=== PATIENT | male | born 1950 | race Caucasian/White ===

== ENCOUNTER → 2023-05-04 06:40 | Day surgery (SDC) | payer BC, SELFPAY ==
--- NOTE | 2023-05-04 08:29 | ITS.CL.CARDI ---
Cloth Edge Singer - Cardioversion
Cardioversion
Procedure Report:
Date of Procedure: 05/04/23
Procedure: Cardioversion
Indication: Symptomatic atrial fibrillation
Performing Physician: Ann-Marie Mcdonald DO [facility]
Technique: The patient was brought to the holding area. Signed informed consent was obtained. A time out was called and performed. The patient was anesthetized by the anesthesia service. Anticoagulation status was reviewed and appropriate
(Eliquis). R2 pads were placed anteriorly and posteriorly. A 200 J synchronized biphasic shock restored normal sinus bradycardia with PACs. There were no complications.
Conclusion: Uncomplicated cardioversion from atrial fibrillation to sinus bradycardia.
Recommendation: Routine post cardioversion care. Continue emt intermediate anticoagulation.
== END ==
LOC: CATH 06:40
PROVIDERS: ATTENDING PHYSICIAN Internal Medicine Cardiovascular Disease; FAMILY PHYSICIAN Internal Medicine Geriatric Medicine
DX: I48.19 Other persistent atrial fibrillation (principal); I34.0 Nonrheumatic mitral (valve) insufficiency; I11.0 Hypertensive heart disease with heart failure; I50.20 Unspecified systolic (congestive) heart failure; Z79.01 Long term (current) use of anticoagulants
CPT/HCPCS: 92960; 93005

== ENCOUNTER → 2023-06-22 09:05 | Day surgery (SDC) | payer BC, SELFPAY ==
[2023-06-22 10:08] VITALS: BMI 26.9
--- NOTE | 2023-06-22 15:48 | ITS.CL.CARDI ---
Potato Picker - Cardioversion
Cardioversion
Procedure Report:
CARDIOVERSION REPORT
DATE: June 22, 2023
Primary Care Provider: Dr Gary Wade
INDICATION: Recurrent symptomatic atrial fibrillation
ANTIARRHYTHMIC DRUG THERAPY: Amiodarone
ANTICOAGULATION: Eliquis
ANESTHESIA:
Deep sedation was administered (Propofol) and monitored via the Anesthesia department.
CARDIOVERSION:
Once sedation was determined to be adequate, a biphasic shock was delivered with external pads placed in an A-P position.
Attempt # 1: 100 J Results: AF continued
Attempt # 2: 200 J Results: SR at a HR of 48 bpm.
COMPLICATIONS: None
CONCLUSION: Successful cardioversion of atrial fibrillation to sinus rhythm.
RECOMMENDATION:
Maintain current medical therapy
Begin and maintain a mild to modest aerobic exercise program (he is considering evaluation at [facility]/PT)
Copy to: Dr Gary Wade
== END ==
LOC: CATH 09:05
PROVIDERS: ATTENDING PHYSICIAN Internal Medicine Cardiovascular Disease; FAMILY PHYSICIAN Family Medicine
DX: I48.19 Other persistent atrial fibrillation (principal); I34.0 Nonrheumatic mitral (valve) insufficiency; I11.0 Hypertensive heart disease with heart failure; I50.20 Unspecified systolic (congestive) heart failure; I25.10 Atherosclerotic heart disease of native coronary artery without angina pectoris; Z79.01 Long term (current) use of anticoagulants
CPT/HCPCS: 92960; 93005

== ENCOUNTER 2023-08-17 06:57 | Day surgery (SDC) | payer BC, SELFPAY ==
[2023-08-17 07:59] VITALS: BMI 27.6
== END 2023-08-17 09:39 | disposition home or self-care (01) ==
LOC: CATH 06:57
PROVIDERS: ATTENDING PHYSICIAN Internal Medicine; FAMILY PHYSICIAN Family Medicine
DX: I48.0 Paroxysmal atrial fibrillation (principal); I34.0 Nonrheumatic mitral (valve) insufficiency; I11.0 Hypertensive heart disease with heart failure; I50.22 Chronic systolic (congestive) heart failure; R73.03 Prediabetes; Z79.01 Long term (current) use of anticoagulants
CPT/HCPCS: 92960; 93005

== ENCOUNTER 2023-08-27 07:12 | Day surgery (SDC) | payer BC, SELFPAY ==
--- NOTE | 2023-08-27 10:45 | ITS.CL.CARDI ---
Box Blank Machine Feeder - Cardioversion
Cardioversion
Procedure Report:
CARDIOVERSION REPORT
DATE: August 27, 2023
INDICATION: Atrial fibrillation
ANTIARRHYTHMIC DRUG THERAPY: Amiodarone
ANTICOAGULATION: Apixaban
ANESTHESIA:
Deep sedation was administered (Propofol) and monitored via the Anesthesia department.
CARDIOVERSION:
Once sedation was determined to be adequate, a biphasic shock was delivered with external pads placed in an A-P position.
Attempt # 1: 360 J Results: SR at a HR of 45 bpm.
COMPLICATIONS: None
CONCLUSION: Successful cardioversion of atrial fibrillation to sinus rhythm.
RECOMMENDATION:
Continue amiodarone
We are making plans for ablation in the near future.
== END 2023-08-27 09:02 | disposition home or self-care (01) ==
LOC: CATH 07:12
PROVIDERS: ATTENDING PHYSICIAN Internal Medicine Cardiovascular Disease; FAMILY PHYSICIAN Family Medicine
DX: I48.0 Paroxysmal atrial fibrillation (principal); I11.0 Hypertensive heart disease with heart failure; I50.22 Chronic systolic (congestive) heart failure; I34.0 Nonrheumatic mitral (valve) insufficiency; I25.10 Atherosclerotic heart disease of native coronary artery without angina pectoris; Z79.01 Long term (current) use of anticoagulants
CPT/HCPCS: 92960; 93005

== ENCOUNTER 2023-09-21 06:53 | Day surgery (SDC) | payer BC, SELFPAY ==
--- NOTE | 2023-09-21 08:53 | ITS.CL.CARDI ---
Flame Annealing Machine Operator - Cardioversion
Cardioversion
Procedure Report:
CARDIOVERSION REPORT
DATE: September 21, 2023
INDICATION: Atrial fibrillation
ANTIARRHYTHMIC DRUG THERAPY: Amiodarone
ANTICOAGULATION: Apixaban
ANESTHESIA:
Deep sedation was administered (Propofol) and monitored via the Anesthesia department.
CARDIOVERSION:
Once sedation was determined to be adequate, a biphasic shock was delivered with external pads placed in an A-P position.
Attempt # 1: 360 J Results: SR at a HR of 45 bpm.
COMPLICATIONS: None
CONCLUSION: Successful cardioversion of atrial fibrillation to sinus rhythm.
RECOMMENDATION:
Continue amiodarone
PVI is planned for October or November this year
== END 2023-09-21 08:39 | disposition home or self-care (01) ==
LOC: CATH 06:53
PROVIDERS: ATTENDING PHYSICIAN Internal Medicine Cardiovascular Disease; FAMILY PHYSICIAN Family Medicine
DX: I48.0 Paroxysmal atrial fibrillation (principal); I11.0 Hypertensive heart disease with heart failure; I50.22 Chronic systolic (congestive) heart failure; I25.10 Atherosclerotic heart disease of native coronary artery without angina pectoris; I34.0 Nonrheumatic mitral (valve) insufficiency; Z79.01 Long term (current) use of anticoagulants
CPT/HCPCS: 92960; 93005

== ENCOUNTER 2023-11-02 06:26 | Day surgery (SDC) | payer BC, SELFPAY ==
[2023-10-12 09:16] VITALS: BMI 27.8
--- NOTE | 2023-10-12 09:24 | HPS.HSE ---
Family Physician
-
Family Physician: Mj Maldonado
Chief Complaint
-
Paroxysmal atrial fibrillation.
History of Present Illness
The patient is a 72 year old male presenting today for paroxysmal atrial fibrillation. He reports no current symptoms associated with this diagnosis. Unfortunately, he has undergone 2 previous ablations in February 2020 and November 2020 and
22 total cardioversions in the past for this diagnosis. He is on current pharmacological therapy with Amiodarone and Carvedilol. Bradycardia has limited Carvedilol dosing and he is currently taking the highest dose he can tolerate. He has been
compliant with Eliquis for oral anticoagulation. He is interested in pursuing pulmonary vein isolation for further arrhythmia management. He denies any complaints today such as chest pain, shortness of breath, palpitations, nausea, vomiting,
diarrhea, lightheadedness, dizziness, cough, sore throat, or fever.
Medical History
Past Medical History
Past Medical History: Reports Other
Additional Past Medical History:
1. Paroxysmal atrial fibrillation, status post ablation x2 and multiple TARIQ-guided cardioversions; pharmacological therapy with Amiodarone and Carvedilol, oral anticoagulation with Eliquis.
2. Hypertension.
3. Coronary artery disease.
4. Chronic heart failure, mildly reduced ejection fraction.
5. Mild aortic insufficiency.
6. Moderate mitral regurgitation.
7. Mild-moderate tricuspid regurgitation.
8. Chronic kidney disease stage 3.
9. Borderline diabetes, improving with weight loss.
10. Graves disease, status post remote thyroid ablation.
11. Post-surgical hypothyroidism.
12. Recurrent COVID-19 infection without residual side effects.
Past Surgical History: Reports Other
Additional Past Surgical History:
1. Atrial fibrillation ablation x2.
2. Multiple cardioversions.
3. Transesophageal echocardiogram x2.
4. Cardiac catheterization.
5. Laparoscopic right inguinal hernia repair with mesh.
6. Childhood unbilical hernia repair.
7. Thyroid ablation.
8. Thyroidectomy.
Social History
Tobacco: Non-smoker
Alcohol: None
Personal:
Living: Other (He lives with his in a split level home. )
Family History
Family History: Not pertinent
Allergies / Home Medications
Allergy/Medication List:
Home medications:
1. Amiodarone 200 mg p.o. twice a day.
2. Carvedilol 3.125 mg, 1/2 tablet p.o. twice a day.
3. Eliquis 5 mg p.o. twice a day.
4. Levothyroxine 200 mcg p.o. Mondays, Wednesdays, Fridays, and Saturdays.
5. Levothyroxine 100 mcg p.o. on Tuesdays.
6. Lisinopril 20 mg p.o. at bedtime.
7. Multivitamin 1 tablet p.o. daily.
Allergies: No known allergies.
Review of Systems
-
A 12 point ROS was completed and negative except as noted: Yes
Physical Exam
Vital Signs
Blood pressure 137/72. Heart rate 55. Respirations 18. Pulse ox 99% on room air.
Height 6 feet, 0.5 inches. Weight 94.3 kg. BMI 27.8.
Physical Exam
General: Well Developed, Well Nourished and No Apparent Distress
HEENT: NormoCephalic, Moist mucous membranes, Atraumatic and PERRLA
Respiratory: Clear
Cardiac: Irregular Rhythm
GI: Soft, Non Tender and Non Distended
Musculoskeletal: No Edema and Normal Gait & Station
Skin: Warm and Dry
Neuro: AO x 3 and Nonfocal/grossly intact
Laboratory Results
-
DIAGNOSTIC STUDIES as of 10/12/2023: White blood cell count 7.6. Hemoglobin 14.4. Platelet count 175,000. PT 16.3. INR 1.33. Sodium 140. Potassium 5.1. BUN 32. Creatinine 1.5. Glucose 111. Calcium 10.1. Magnesium 2.2. AST 24. ALT 21. Albumin 4.5.
Blood type A positive.
EKG 10/12/2023: Atrial fibrillation with slow ventricular response.
Echocardiogram 04/17/2023: Top normal left ventricular size. Reduced systolic function. No regional wall motion abnormalities are seen. Left ventricular ejection fraction is 40-45% by visual assessment. Stage II diastolic dysfunction suggestive of
abnormal relaxation and increased filling pressures. Mild concentric left ventricular hypertrophy. Severely enlarged left atrium. Mildly enlarged right atrium. Moderate mitral regurgitation with eccentric regurgitant jet. Mild aortic insufficiency.
Mild to moderate tricuspid regurgitation with normal estimated pulmonary artery pressure. Compared to the prior echocardiogram from April 02, 2022, there is no significant change.
Impression/Plan
-
IMPRESSION/PLAN:
1. Paroxysmal atrial fibrillation: The patient is in need of pulmonary vein isolation with Dr. Stanislaw Cano on 11/02/2023. The benefits and risks of the procedure have been explained to the patient. The patient understands these risks and
wishes to proceed. He will not be required to undergo a pre-procedural transesophageal echocardiogram as he has been compliant with his home oral anticoagulation. He will hold his Eliquis the night before and morning of his procedure unless he is
otherwise specified by his surgeon. He will take no other medications the morning of his procedure.
[2023-10-12 09:39] LABS: % Basophils 0.8 % (0-2); % Immature Granulocytes 0.4 % (0-0.5); % Lymphocytes 14.9 % (20.5-51.1); % Monocytes 8.4 % (1.7-9.3); % Neutrophils 65.5 % (42.2-75.2); Absolute Basophils 0.1 10^3/uL (0-0.2); Absolute Eosinophils 0.8 10^3/uL (0-0.7); Absolute Lymphocytes 1.1 10^3/uL (1.2-3.4); Absolute Monocytes 0.6 10^3/uL (0.1-0.6); Hematocrit 42.1 % (39.0-52.0); Hemoglobin 14.4 g/dL (13.0-18.0); Mean Corp Hgb Conc. 34.2 g/dL (33.0-37.0); Mean Corpuscular Hgb 32.4 pg (27.0-31.0); Mean Corpuscular Volume 94.8 fL (80.0-94.0); Mean Platelet Volume 9.5 fL (7.4-10.4); Nucleated Red Blood Cells % 0 % (-); Platelet Count 175 10^3/uL (130-400); Red Blood Cell Count 4.44 10^6/uL (4.70-6.10); Red Cell Dist. Width 15.5 % (11.5-14.5); White Blood Cell Count 7.6 10^3/uL (4.8-10.8)
[2023-10-12 09:52] LABS: INR 1.33; PT 16.3 Sec (11.4-14.6)
[2023-10-12 10:26] LABS: ALT (SGPT) 21 U/L (0-50); AST (SGOT) 24 U/L (17-59); Albumin 4.5 g/dl (3.5-5.0); Alkaline Phosphatase 60 U/L (38-126); Blood Urea Nitrogen 32 mg/dl (9-20); Calcium 10.1 mg/dl (8.4-10.2); Carbon Dioxide 27 mmol/L (22-30); Chloride 105 mmol/L (98-107); Estimated Creatinine Clearance 49 ml/min; Glucose 111 mg/dl (70-99); Magnesium 2.2 mg/dl (1.6-2.3); Potassium 5.1 mmol/L (3.5-5.1); Sodium 140 mmol/L (135-145); Total Bilirubin 0.9 mg/dl (0.2-1.3); Total Protein 6.7 g/dl (6.3-8.2); eGFR 48.85
[2023-11-02] VITALS (11 sets, daily range): BP systolic 133–165; BP diastolic 55–91; BMI 27.3
[2023-11-02 09:03] LABS: ACT-LR - POC 369 Seconds (116-155)
[2023-11-02 09:29] LABS: ACT-LR - POC 348 Seconds (116-155)
[2023-11-02] MEDS: ANESTHETIC LOZENGE 1 LOZENGE PO (11:30)
--- NOTE | 2023-11-02 12:38 | ITS.CL.ABL ---
Supervisor Microbiology Technologists - Ablation
Ablation
Procedure Report:
ELECTROPHYSIOLOGIC STUDY AND POSSIBLE ABLATION
DATE: November 02, 2023
Primary Care Provider: Dr. Gary Wade
INDICATION:
Symptomatic Atrial Fibrillation.
Persistent
HISTORY: See H and P.
Symptomatic longstanding persistent AF, poorly controlled with prior ablations as well as attempted antiarrhythmic drug therapy.
He also has known significant mitral regurgitation which is varied from moderate to moderate to severe as well as left ventricular systolic dysfunction with LVEF that is varied from 30-40 5-50%. He has known severely dilated left atrium. He
underwent PVI in Feb 2020 and Nov 2020. He has required amiodarone as well as repeated cardioversions in attempt to maintain sinus rhythm.
HAS-BLED: 2
Age
Abnormal Renal Function
CHADSVASc: 3
HFmrEF
HTN
Age
PRESENTING RHYTHM: AF
HISTORY: See H and P.
Symptomatic AF, poorly controlled with attempted medical therapy.
ANTIARRHYTHMIC DRUG: amiodarone
ANTICOAGULATION: Apioxaban
'TIME-OUT': called and confirmed.
SEDATION/ANESTHESIA: provided via the anesthesia department using general anesthesia.
PROCEDURE:
Ultrasound Guidance performed by ar was utilized for femoral venous Vascular Access b/l.
A decapolar CS catheter was placed within the CS for mapping and pacing.
The intracardiac ultrasound catheter was positioned in the RA for continuous intracardiac ultrasound imaging.
Heparin bolus and infusion to target ACT at 300 -350 seconds was administered. Transseptal puncture was performed. This entailed advancing a sheath with dilator into the superior vena cava and withdrawing both (monitoring intracardiac ultrasound,
fluoroscopy and tip pressure) with the tip oriented toward the atrial septum. The fossa ovalis was engaged (indicated by sudden displacement of the sheath tip as well as tenting of the fossa seen on intracardiac ultrasound).
AcQCross transseptal system was used. Left atrial catheter position was confirmed by echocardiographic imaging, pressure monitoring and fluoroscopy. The sheath was advanced over the dilator and positioned in the left atrium.
The multipolar mapping catheter was initially positioned through the transseptal sheath for high density mapping.
Geometry and voltage mapping was performed using the ERLink multipolar grid catheter. Navex was utilized for three-dimensional electroanatomical mapping.
A 3-D map was created using Navex. A 3-D reconstructed CT image was compared to the 3-D Navex map to assist in anatomic evaluation, mapping and ablation.
Voltage mapping demonstrates wide area circumferential ablation around the left sided pulmonary veins set (left superior and left inferior) as well as the right sided pulmonary veins set (right superior and right inferior) with electrical isolation
and a wide area circumferential fashion.
The Pro V&V Pulse [employer] PFA catheter and system was used for cardiac ablation. Catheter positioning was guided and confirmed using both I.C.E. and fluoroscopy.
Pulsed electric field energy was delivered in a wide area circumferential fashion around the pulmonary vein ostia with pulsed electric field energy and to isolate the posterior wall of the left atrium. Cardioversion restored sinus rhythm. During
remapping with the grid catheter and a regular atrial tachycardia developed. Mapping suggested less than complete posterior wall isolation at the dome of the left atrium posteriorly and also at the floor of the left atrium towards the antrum of the
left inferior pulmonary vein. Pulsed electric field energy ablation catheter was then substituted for the mapping catheter and additional lesions were given to fully isolate the posterior wall of the left atrium. Cardioversion once again restored
sinus rhythm but during catheter manipulation in a regular atrial tachycardia/atrial fibrillation once again developed. There is no clear identifiable trigger. Additional ablation was delivered to the area of the ligament of Alfred from the
superior to inferior edge of the ridge the pulmonary veins on the left side from the left atrial appendage. Cardioversion once again restored sinus rhythm. During remapping atrial tachycardia again developed with trigger appearing to be
from the right atrium. Cardioversion restored sinus rhythm, while mapping the right atrium atrial fibrillation once again occurred with trigger appearing to come from somewhere within the left atrium. At this point cardioversion was once again
performed and no further mapping and ablation was performed.
I.C.E. :
Pre-Ablation Post-Ablation
LVEF: 40 % 40 %
WMA: none none
Pericardial effusion: trace posterior trace posterior
COMPLICATIONS:
SUMMARY:
- Mapping and ablation to isolate the PVs
- Additional AF ablation set after PVI (posterior wall isolation, ridge between the left pulmonary veins and the left atrial appendage).
- 3-D Electroanatomical Mapping
- Intracardiac Ultrasound
Post ablation, I discussed today's findings and results with the patient's and daughter.
RECOMMENDATIONS:
- Observe in monitored bed.
- Maintain oral anticoagulation.
- Continue amiodarone at 200 mg daily
- Office visit with me in 3 months.
He has complete pulmonary venous electrical isolation with complete isolation of the posterior wall of the left atrium and additional ablation lesion set along the area of the ligament of Alfred yet he continued to demonstrate recurrence of
irregular atrial tachycardia/atrial fibrillation. This is likely related to his marked atrial dilatation contributed to by his longstanding persistent atrial fibrillation as well as known mitral valvular disease.
It is unlikely that any further ablation would have significant therapeutic effect at rhythm control. Our plan at present is to maintain amiodarone as long as he maintains sinus rhythm. If he maintains sinus rhythm, will plan to maintain
amiodarone for at least 6 months and then consider stopping amiodarone. If he recurs with atrial fibrillation either on amiodarone or after discontinuation of amiodarone, it is very likely we would let him stay in atrial fibrillation and become
permanent atrial fibrillation as overall he has tolerated Amio somewhat poorly, particularly at higher doses.
Copy to:
Dr. Gary Wade
[2023-11-02 12:43] LABS: ACT-LR - POC > 397 Seconds (116-155)
--- NOTE | 2023-11-02 14:19 | W.PN.UPDATE ---
Update Note
Progress Note Update
Pt seen post PFA. Bilat groin sites without ht/bleeding, non tender. OOB ambulating, post EKG SB 40-50s, no acute changes. Resume eliquis today. Continue other meds as before. Bradycardia noted and on lowest tolerated dose of carvedilol at this
time. Followup at [facility] arranged. Home today if groin sites/tele remain stable.
== END 2023-11-02 15:00 | disposition home or self-care (01) ==
LOC: CATH 06:26
PROVIDERS: ATTENDING PHYSICIAN Internal Medicine Cardiovascular Disease; FAMILY PHYSICIAN Internal Medicine Geriatric Medicine
DX: I48.0 Paroxysmal atrial fibrillation (principal); I13.0 Hypertensive heart and chronic kidney disease with heart failure and stage 1 through stage 4 chronic kidney disease, or unspecified chronic kidney disease; I50.22 Chronic systolic (congestive) heart failure; N18.30 Chronic kidney disease, stage 3 unspecified; I25.10 Atherosclerotic heart disease of native coronary artery without angina pectoris; I08.3 Combined rheumatic disorders of mitral, aortic and tricuspid valves; E89.0 Postprocedural hypothyroidism; Z79.01 Long term (current) use of anticoagulants
CPT/HCPCS: C1732; C1894; C1733; C1769; C1730; C1892; C1759; 36415; 76937; 80053; 83735; 85025; 85347; 85610; 86850; 86900; 86901; 93005; 93656; 93657

== ENCOUNTER 2023-12-03 06:56 | Day surgery (SDC) | payer BC, SELFPAY ==
--- NOTE | 2023-12-03 07:45 | ITS.CL.CARDI ---
Foam Cutting Supervisor - Cardioversion
Cardioversion
Procedure Report:
CARDIOVERSION REPORT
DATE: 12/03/23
Primary Care Provider: Dr Gary Cormier
INDICATION: Atrial Fibrillation
ANTIARRHYTHMIC DRUG THERAPY: amiodarone
ANTICOAGULATION: apixaban
ANESTHESIA:
Deep sedation was administered (Propofol) and monitored via the Anesthesia department.
CARDIOVERSION:
Once sedation was determined to be adequate, a biphasic shock was delivered with external pads placed in an A-P position.
Attempt # 1: 360 J Results: SR at a HR of 50 bpm.
COMPLICATIONS: None
CONCLUSION: Successful cardioversion of atrial fibrillation to sinus rhythm.
RECOMMENDATION:
Maintain current amiodarone and apixaban
Copy to:
Dr Gary Cormier
== END 2023-12-03 08:27 | disposition home or self-care (01) ==
LOC: CATH 06:56
PROVIDERS: ATTENDING PHYSICIAN Internal Medicine Cardiovascular Disease; FAMILY PHYSICIAN Family Medicine
DX: I48.0 Paroxysmal atrial fibrillation (principal); I25.10 Atherosclerotic heart disease of native coronary artery without angina pectoris; I13.0 Hypertensive heart and chronic kidney disease with heart failure and stage 1 through stage 4 chronic kidney disease, or unspecified chronic kidney disease; I50.22 Chronic systolic (congestive) heart failure; N18.30 Chronic kidney disease, stage 3 unspecified; I08.3 Combined rheumatic disorders of mitral, aortic and tricuspid valves; Z79.01 Long term (current) use of anticoagulants
CPT/HCPCS: 92960; 93005

== ENCOUNTER 2024-04-01 07:01 | Day surgery (SDC) | payer BC, SELFPAY ==
[2024-04-01 07:43] VITALS: BMI 27.4
--- NOTE | 2024-04-04 14:12 | ITS.CL.CARDI ---
Mill Helper - Cardioversion
Cardioversion
Procedure Report:
CARDIOVERSION REPORT
DATE: April 01, 2024
INDICATION: Symptomatic recurrent atrial fibrillation
ANTIARRHYTHMIC DRUG THERAPY: Amiodarone
ANTICOAGULATION: DOAC
ANESTHESIA:
Deep sedation was administered (Propofol) and monitored via the Anesthesia department.
CARDIOVERSION:
Once sedation was determined to be adequate, a biphasic shock was delivered with external pads placed in an A-P position.
Attempt # 1: 200 J Results: SR at a HR of 45 bpm.
COMPLICATIONS: None
CONCLUSION: Successful cardioversion of atrial fibrillation to sinus rhythm.
RECOMMENDATION:
1. Continue amiodarone
2. Continue
== END 2024-04-01 08:50 | disposition home or self-care (01) ==
LOC: CATH 07:01
PROVIDERS: ATTENDING PHYSICIAN Internal Medicine Cardiovascular Disease; FAMILY PHYSICIAN Family Medicine
DX: I48.0 Paroxysmal atrial fibrillation (principal); I25.10 Atherosclerotic heart disease of native coronary artery without angina pectoris; I13.0 Hypertensive heart and chronic kidney disease with heart failure and stage 1 through stage 4 chronic kidney disease, or unspecified chronic kidney disease; I50.22 Chronic systolic (congestive) heart failure; N18.30 Chronic kidney disease, stage 3 unspecified; I08.3 Combined rheumatic disorders of mitral, aortic and tricuspid valves; Z79.01 Long term (current) use of anticoagulants
CPT/HCPCS: 92960; 93005

== ENCOUNTER → 2024-05-05 10:04 | Outpatient (REF) | payer BC, SELFPAY | LOC: RCS 10:04 | PROVIDERS: ATTENDING PHYSICIAN Internal Medicine Cardiovascular Disease; FAMILY PHYSICIAN Family Medicine; REFERRING PHYSICIAN Family Medicine | DX: I48.0 Paroxysmal atrial fibrillation (principal) | CPT/HCPCS: 93306 ==

== ENCOUNTER 2024-06-02 06:57 | Day surgery (SDC) | payer BC, SELFPAY ==
--- NOTE | 2024-06-02 07:44 | ITS.CL.CARDI ---
Addendum entered and electronically signed by Stanislaw Cano MD 06/02/24 08:06:
I am seeing him back in the office on July 19, 2024.
We we will have a discussion at that point regarding ongoing antiarrhythmic drug therapy including consideration for stopping amiodarone and moving towards dofetilide but would need to be dose adjusted for renal function.
Original Note:
Medical Staff Coordinator - Cardioversion
Cardioversion
Procedure Report:
CARDIOVERSION REPORT
DATE: Jun 022024
INDICATION: Symptomatic recurrent atrial fibrillation
ANTIARRHYTHMIC DRUG THERAPY: Amiodarone
ANTICOAGULATION: DOAC
ANESTHESIA:
Deep sedation was administered (Propofol) and monitored via the Anesthesia department.
CARDIOVERSION:
Once sedation was determined to be adequate, a biphasic shock was delivered with external pads placed in an A-P position.
Attempt # 1: 200 J Results: SR at a HR of 50 bpm.
COMPLICATIONS: None
CONCLUSION: Successful cardioversion of atrial fibrillation to sinus rhythm.
RECOMMENDATION:
1. Continue amiodarone, but reduce dose to 100 mg daily to try to minimize dose cumulative toxicity risk
He has expressed that he does feel better in sinus rhythm. We could consider yet another mapping and ablation procedure at some point.
2. Continue Eliquis 5 mg BID
Copy:
Dr Gary Wade
== END 2024-06-02 08:30 | disposition home or self-care (01) ==
LOC: CATH 06:57
PROVIDERS: ATTENDING PHYSICIAN Internal Medicine Cardiovascular Disease; FAMILY PHYSICIAN Family Medicine
DX: I48.91 Unspecified atrial fibrillation (principal); Z79.01 Long term (current) use of anticoagulants
CPT/HCPCS: 92960; 93005

== ENCOUNTER 2024-08-29 07:05 | Day surgery (SDC) | payer BC, SELFPAY ==
--- NOTE | 2024-08-29 07:44 | ITS.CL.CARDI ---
Notched Blade Loader - Cardioversion
Cardioversion
Procedure Report:
DATE: 08/29/24
INDICATION: Symptomatic recurrent atrial fibrillation
ANTIARRHYTHMIC DRUG THERAPY: Amiodarone
ANTICOAGULATION: DOAC (Eliquis 5 mg twice daily)
ANESTHESIA:
Deep sedation was administered (Propofol) and monitored via the Anesthesia department.
CARDIOVERSION:
Once sedation was determined to be adequate, a biphasic shock was delivered with external pads placed in an A-P position.
Attempt # 1: 200 J Results: SR at a HR of 50 bpm.
COMPLICATIONS: None
CONCLUSION: Successful cardioversion of atrial fibrillation to sinus rhythm.
RECOMMENDATION:
1. Continue amiodarone 200 mg daily
He has expressed that he does feel better in sinus rhythm. We could consider yet another mapping and ablation procedure at some point.
There can also be consideration for stopping amiodarone and eventually initiating dofetilide, renally dosed.
2. Continue Eliquis 5 mg BID
Copy:
Dr Gary Wade
[2024-08-29 07:52] VITALS: BMI 27.0
== END 2024-08-29 08:30 | disposition home or self-care (01) ==
LOC: CATH 07:05
PROVIDERS: ATTENDING PHYSICIAN Internal Medicine Cardiovascular Disease; FAMILY PHYSICIAN Family Medicine
DX: I48.0 Paroxysmal atrial fibrillation (principal); I11.0 Hypertensive heart disease with heart failure; I50.22 Chronic systolic (congestive) heart failure; I34.0 Nonrheumatic mitral (valve) insufficiency; I25.10 Atherosclerotic heart disease of native coronary artery without angina pectoris; Z79.01 Long term (current) use of anticoagulants
CPT/HCPCS: 92960; 93005